=== PATIENT | female | born 1995 | race Hispanic/Latino ===

== ENCOUNTER 2018-10-13 13:24 | Emergency (ER) | payer BC ==
[~2018-10-13] VITALS: Ht 154.9 cm; Wt 63.5 kg
--- OUTSIDE RECORDS SUMMARY | 2018-10-13 13:26 | XMS REPORT ---
Author Author [facility] Address Unknown Phone Unavailable Care Team Providers Care Senior Oracle Database Developer Name Role Phone Unavailable Unavailable Payers Payer Name Policy Type Policy Number Effective Date Expiration Date Problems This patient has no known problems. Allergies, Adverse Reactions, Alerts Allergy Name Allergy Type Status Severity Reaction(s) Onset Date Inactive Date Treating Clinician Comments No Known Allergies DA Active U 2014-05-04 00:00:00 Medications This patient has no known medications. Results Test Description Test Time Test Comments Text Results Atomic Results Result Comments URINALYSIS COMPLETE 2018-09-01 23:47:00 UA COLOR (test code=COLU) Light-Yellow YELLOW UA APPEARANCE (test code=APPU) CLEAR CLEAR UA GLUCOSE DIPSTICK (test code=DGLUU) NEGATIVE mg/dL NEGATIVE UA BILIRUBIN DIPSTICK (test code=BILU) NEGATIVE mg/dL NEGATIVE UA KETONE DIPSTICK (test code=KETU) NEGATIVE mg/dL NEGATIVE UA SPECIFIC GRAVITY (test code=SGU) 1.026 1.001-1.035 UA BLOOD DIPSTICK (test code=JOSE) Negative mg/dL NEGATIVE UA PH DIPSTICK (test code=DARIN) 8.5 5.0-8.0 UA PROTEIN DIPSTICK (test code=PROU) 70 (1+) mg/dL NEGATIVE UA UROBILINIOGEN DIPSTICK (test code=URO) Normal mg/dL NEGATIVE UA NITRITE DIPSTICK (test code=LIN) NEGATIVE NEGATIVE UA LEUKOCYTE ESTERASE W REFLEX (test code=LEUUR) NEGATIVE Darling/uL NEGATIVE UA WBC (test code=WBCU) 0-5 per HPF 0-5 UA RBC (test code=RBCU) 0-2 #/HPF 0-5 UA EPITHELIAL CELLS (test code=EPIU) FEW per HPF FEW UA BACTERIA (test code=BACU) NONE SEEN #/HPF NONE UA MUCUS (test code=MUCU) FEW #/LPF FEW Urine Source? CatheterBASIC METABOLIC [id number] 23:10:00* Test Item Value Reference Range Comments SODIUM (test code=NA) 142 mmol/L 136-145 POTASSIUM (test code=K) 4.0 mmol/L 3.5-5.1 CHLORIDE (test code=CL) 110.0 mmol/L 98-107 CARBON DIOXIDE (test code=CO2) 26.0 mmol/L 21-32 ANION GAP (test code=GAP) 10.0 10-20 GLUCOSE (test code=GLU) 100 mg/dL 74-106 BLOOD UREA NITROGEN (test code=BUN) 9 mg/dL 7-18 GLOMERULAR FILTRATION RATE (test code=GFR) > 60 mL/min >=60 Estimated GFR by using Modified MDRD formula.Chronic kidney disease is defined as either kidney damageor GFR <60 mL/min/1.73 m2 for >3 months. CREATININE (test code=CREAT) 0.90 mg/dL 0.55-1.02 Note change in reference range due to change in reagent. BUN/CREATININE RATIO (test code=BUN/CREA) 10.3 10-20 CALCIUM (test code=CA) 9.2 mg/dL 8.5-10.1 HEPATIC FUNCTION [id number] 23:10:00* Test Item Value Reference Range Comments TOTAL PROTEIN (test code=PROT) 8.3 gram/dL 6.4-8.2 ALBUMIN (test code=ALB) 4.4 g/dL 3.4-5.0 GLOBULIN (test code=GLOB) 3.9 gram/dL 2.7-4.2 ALBUMIN/GLOBULIN RATIO (test code=A/G) 1.1 0.75-1.50 BILIRUBIN TOTAL (test code=BILT) 0.40 mg/dL 0.0-1.0 BILIRUBIN DIRECT (test code=BILD) 0.12 mg/dL 0.0-0.20 SGOT/AST (test code=AST) 15 IUnit/L 15-37 SGPT/ALT (test code=ALT) 22 IUnit/L 12-78 ALKALINE PHOSPHATASE TOTAL (test code=ALKP) 96 IUnit/L 45-117 Note change in reference range due to change in reagent. [id number] 23:10:00* Test Item Value Reference Range Comments LIPASE (test code=LIP) 518 U/L 73.0-393.0 HCG SERUM [id number] 23:10:00* Test Item Value Reference Range Comments HCG SERUM BETA (test code=HCG) < 1.0 mIU/mL 0-3 INTERPRETATION:B-HCG LEVELS <5 SHOULD BE CONSIDERED "NEGATIVE." *WHEN BODERLINE RESULTS ARE ENCOUNTERED,PATIENT SAMPLESSHOULD BE REDRAWN 48 HOURS. 0-1 WEEKS AFTER CONCEPTION 5-50 MIU/ML1-2 WEEKS AFTER CONCEPTION 50-500 MIU/ML2-3 WEEKS AFTER CONCEPTION 100 -5,000 MIU/ML3-4 WEEKS AFTER CONCEPTION 500-10,000 MIU/ML4-5 WEEKS AFTER CONCEPTION 1000 -50,000 MIU/ML5-6 WEEKS AFTER CONCEPTION 10,000-100,000 MIU/ML6-8 WEEKS AFTER CONCEPTION 15,000- 200,000 MIU/ML2-3 MONTHS AFTER CONCEPTION 10,000-100,000 MIU/ML BASIC METABOLIC [id number] 23:01:00* Test Item Value Reference Range Comments SODIUM (test code=NA) 142 mmol/L 136-145 POTASSIUM (test code=K) 4.0 mmol/L 3.5-5.1 CHLORIDE (test code=CL) 110.0 mmol/L 98-107 CARBON DIOXIDE (test code=CO2) mmol/L 21-32 ANION GAP (test code=GAP) 10-20 GLUCOSE (test code=GLU) mg/dL 74-106 BLOOD UREA NITROGEN (test code=BUN) mg/dL 7-18 GLOMERULAR FILTRATION RATE (test code=GFR) mL/min >=60 CREATININE (test code=CREAT) mg/dL 0.55-1.02 BUN/CREATININE RATIO (test code=BUN/CREA) 10-20 CALCIUM (test code=CA) mg/dL 8.5-10.1 HEPATIC FUNCTION [id number] 23:01:00* Test Item Value Reference Range Comments TOTAL PROTEIN (test code=PROT) gram/dL 6.4-8.2 ALBUMIN (test code=ALB) g/dL 3.4-5.0 GLOBULIN (test code=GLOB) gram/dL 2.7-4.2 ALBUMIN/GLOBULIN RATIO (test code=A/G) 0.75-1.50 BILIRUBIN TOTAL (test code=BILT) mg/dL 0.0-1.0 BILIRUBIN DIRECT (test code=BILD) mg/dL 0.0-0.20 SGOT/AST (test code=AST) IUnit/L 15-37 SGPT/ALT (test code=ALT) IUnit/L 12-78 ALKALINE PHOSPHATASE TOTAL (test code=ALKP) IUnit/L 45-117 [id number] 23:01:00* Test Item Value Reference Range Comments LIPASE (test code=LIP) U/L 73.0-393.0 HCG SERUM [id number] 23:01:00* Test Item Value Reference Range Comments HCG SERUM BETA (test code=HCG) mIU/mL 0-3 URINALYSIS [id number] 22:46:00* Test Item Value Reference Range Comments UA COLOR (test code=COLU) YELLOW YELLOW UA APPEARANCE (test code=APPU) Cloudy CLEAR UA GLUCOSE DIPSTICK (test code=DGLUU) NEGATIVE mg/dL NEGATIVE UA BILIRUBIN DIPSTICK (test code=BILU) NEGATIVE mg/dL NEGATIVE UA KETONE DIPSTICK (test code=KETU) NEGATIVE mg/dL NEGATIVE UA SPECIFIC GRAVITY (test code=SGU) 1.032 1.001-1.035 UA BLOOD DIPSTICK (test code=JOSE) Negative mg/dL NEGATIVE UA PH DIPSTICK (test code=DARIN) 8.5 5.0-8.0 UA PROTEIN DIPSTICK (test code=PROU) 200 (2+) mg/dL NEGATIVE UA UROBILINIOGEN DIPSTICK (test code=URO) Normal mg/dL NEGATIVE UA NITRITE DIPSTICK (test code=LIN) NEGATIVE NEGATIVE UA LEUKOCYTE ESTERASE W REFLEX (test code=LEUUR) 25 Darling/uL (Trace) Darling/uL NEGATIVE UA WBC (test code=WBCU) per HPF 0-5 UA RBC (test code=RBCU) per HPF 0-5 UA EPITHELIAL CELLS (test code=EPIU) per HPF Few UA BACTERIA (test code=BACU) per HPF NONE Urine Source? Clean CatchURINALYSIS [id number] 22:46:00* Test Item Value Reference Range Comments UA COLOR (test code=COLU) YELLOW YELLOW UA APPEARANCE (test code=APPU) Cloudy CLEAR UA GLUCOSE DIPSTICK (test code=DGLUU) NEGATIVE mg/dL NEGATIVE UA BILIRUBIN DIPSTICK (test code=BILU) NEGATIVE mg/dL NEGATIVE UA KETONE DIPSTICK (test code=KETU) NEGATIVE mg/dL NEGATIVE UA SPECIFIC GRAVITY (test code=SGU) 1.032 1.001-1.035 UA BLOOD DIPSTICK (test code=JOSE) Negative mg/dL NEGATIVE UA PH DIPSTICK (test code=DARIN) 8.5 5.0-8.0 UA PROTEIN DIPSTICK (test code=PROU) 200 (2+) mg/dL NEGATIVE UA UROBILINIOGEN DIPSTICK (test code=URO) Normal mg/dL NEGATIVE UA NITRITE DIPSTICK (test code=LIN) NEGATIVE NEGATIVE UA LEUKOCYTE ESTERASE W REFLEX (test code=LEUUR) 25 Darling/uL (Trace) Darling/uL NEGATIVE UA WBC (test code=WBCU) 11-20 per HPF 0-5 UA RBC (test code=RBCU) 3-5 #/HPF 0-5 UA EPITHELIAL CELLS (test code=EPIU) MANY per HPF FEW UA BACTERIA (test code=BACU) FEW #/HPF NONE UA HYALINE CAST (test code=HYALU) 3-5 #/LPF 0-5 UA MUCUS (test code=MUCU) MODERATE #/LPF FEW Urine Source? Clean CatchCBC W/O [id number] 22:23:00* Test Item Value Reference Range Comments WHITE BLOOD CELL (test code=WBC) 9.4 K/mm3 4.5-12.5 RED BLOOD CELL (test code=RBC) 4.44 mill/mm3 3.7-5.2 HEMOGLOBIN (test code=HGB) 13.9 gram/dL 11.5-15.5 HEMATOCRIT (test code=HCT) 41.3 % 36.0-46.0 MEAN CELL VOLUME (test code=MCV) 93.0 fL 80-98 MEAN CELL HGB (test code=MCH) 31.3 picogram 27.0-33.0 MEAN CELL HGB CONCETRATION (test code=MCHC) 33.7 gram/dL 33.0-36.0 RED CELL DISTRIBUTION WIDTH (test code=RDW) 12.8 % 11.6-16.2 PLATELET COUNT (test code=PLT) 294 K/mm3 150-450 MEAN PLATELET VOLUME (test code=MPV) 10.8 fL 6.7-11.0 CBC W/O [id number] 22:22:00* Test Item Value Reference Range Comments WHITE BLOOD CELL (test code=WBC) K/mm3 4.5-12.5 RED BLOOD CELL (test code=RBC) mill/mm3 3.7-5.2 HEMOGLOBIN (test code=HGB) 13.9 gram/dL 11.5-15.5 HEMATOCRIT (test code=HCT) 41.3 % 36.0-46.0 MEAN CELL VOLUME (test code=MCV) fL 80-98 MEAN CELL HGB (test code=MCH) picogram 27.0-33.0 MEAN CELL HGB CONCETRATION (test code=MCHC) gram/dL 33.0-36.0 RED CELL DISTRIBUTION WIDTH (test code=RDW) % 11.6-16.2 PLATELET COUNT (test code=PLT) K/mm3 150-450 MEAN PLATELET VOLUME (test code=MPV) fL 6.7-11.0
[2018-10-13] MEDS ORDERED: TRAMADOL HCL 50 MG TAB PO ONE (14:00)
--- NOTE | 2018-10-13 14:19 | Diagnostic Imaging Report ---
ADDENDUM #1 RIGHT KNEE - 3 Image(s) HISTORY: Fall, rule out fracture COMPARISON: None available. FINDINGS: Bones: Subtle flattening of the lateral femoral condyle in the region of the sulcus terminalis. No aggressive osseous lesion. Joints: Probable effusion. Soft tissues: Otherwise, unremarkable. IMPRESSION: Please note, the findings correctly states the subtle impaction deformity is of the anterior aspect of the lateral femoral condyle. This is concerning for an associated anterior cruciate ligament tear (pivot-shift mechanism of injury). Recommend a follow-up nonemergent knee MRI without contrast for further evaluation. Signed by: Dr. Josiah Mcginnis D.O., M.M.M. on 10/13/2018 3:26 PM ORIGINAL REPORT RIGHT KNEE - 3 Image(s) HISTORY: Fall, rule out fracture COMPARISON: None available. FINDINGS: Bones: Subtle flattening of the lateral femoral condyle in the region of the sulcus terminalis. No aggressive osseous lesion. Joints: Probable effusion. Soft tissues: Otherwise, unremarkable. IMPRESSION: Suspected subtle impaction deformity of the anterior aspect of the lateral tibial plateau. This is concerning for an associated anterior cruciate ligament tear. Recommend a follow-up nonemergent knee MRI without contrast for further evaluation. Signed by: Dr. Josiah Mcginnis D.O., M.M.M. on 10/13/2018 2:16 PM
--- NOTE | 2018-10-13 15:27 | Diagnostic Imaging Report ---
CT scan of the RIGHT KNEE, WITHOUT injected contrast. TECHNIQUE: Standard departmental protocols were used. Sagittal and coronal reformatted images were obtained. HISTORY: Pain, fall COMPARISON: Right knee radiographs October 13, 2018. FINDINGS: Bone: Confirmation of the subtle, nondisplaced, impaction at the anterior weightbearing surface of the lateral femoral condyle. No aggressive osseous lesions. Joint: Confirmation of a small nonspecific joint effusion. Soft Tissues: The anterior cruciate ligament appears markedly ill-defined within the limitations of CT. IMPRESSION: Confirmation of the subtle impaction fracture deformity at the anterior weightbearing surface of the lateral femoral condyle and small nonspecific joint effusion. These findings remain concerning for an associated anterior cruciate ligament tear. Recommend a follow-up nonemergent knee MRI without contrast for further evaluation. Signed by: Dr. Josiah Mcginnis D.O., M.M.M. on 10/13/2018 3:23 PM
[2018-10-13] MEDS ORDERED: ONDANSETRON HCL 4 MG ORAL DISINTEGRATING TAB PO ONE (15:30)
[2018-10-13 16:21] VITALS: BP 129/88
[2018-10-24] MEDS ORDERED: ULTRAM50 MG PO (16:08)
[2018-10-28] MEDS ORDERED: inhaler INH (09:01)
== END 2018-10-13 16:22 | disposition home or self-care (01) ==
LOC: ER 13:24
DX: M25.561 Pain in right knee (principal); M25.461 Effusion, right knee; S82.124A Nondisplaced fracture of lateral condyle of right tibia, initial encounter for closed fracture; R26.2 Difficulty in walking, not elsewhere classified; W01.0XXA Fall on same level from slipping, tripping and stumbling without subsequent striking against object, initial encounter; J45.909 Unspecified asthma, uncomplicated
CPT/HCPCS: 29530; 73562; 73700; 99284; Q0162

== ENCOUNTER → 2018-10-28 | Day surgery (SDC) | payer BC ==
[~2018-10-28] MED LIST: ACETAMINOPHEN 1000 MG/100 ML IV ONE; BUPIVACAINE 0.25% 30ML SDV INJ ONE; BUPIVACAINE 0.5%/EPI 30 ML SDV INJ ONE; CEFAZOLIN SOD 1 GM/NS 50ML 100 ML IV ONE; DEXAMETHASONE SOD PHOS INJ 4 MG/ML VIAL ONE; FENTANYL CITRATE/PF 100MCG/2 ML INJ ONE; KETOROLAC TROMETHAMINE 30 MG/ML VIAL ONE; LIDOCAINE 1% W/EPINEPHRINE 20 ML VIAL ONE; LIDOCAINE 2% /EPINEPHRINE 20 ML SDV INJ ONE; LIDOCAINE HCL 2% LOCAL INJ 5 ML SDV VIAL INJ ONE; MEPERIDINE HCL INJ 25 MG/ML VIAL ONE; METOCLOPRAMIDE HCL 10 MG/2ML VIAL ONE; MIDAZOLAM HCL 2 MG/2 ML VIAL ONE; ONDANSETRON HCL INJ 2MG/ML 2ML 2 MG/ML VIAL ONE; PROPOFOL IV EMULSION 10 MG/ML 20 ML VIAL ONE; SEVOFLURANE INHAL SOLN 250 ML PEN BTL ONE; ULTRAM50 MG PO; inhaler INH
[2018-10-28 14:55] VITALS: BP 134/82
--- NOTE | 2018-10-28 21:50 | NUR ---
ORTHOPEDICS OPERATIVE NOTE Date 10/28/18 Pre-Op Dx: Right Knee ACL Tear, Medial Unstable Posterior Horn Meniscus Tear, Post-Op Dx: Right Knee ACL Tear, Medial Unstable Posterior Horn Meniscus Tear, Lateral Posterior Horn Radial Tear Procedure(s): Right Knee ACL Reconstruction with BTB Autograft, Medial Undersurface Unstable Posterior Horn Meniscus Tear, Lateral Posterior Horn Meniscus Tear Anesthesia Type: Surgeon: Urmila Sterling DO Cloth Grader Supervisor: Farzad Antonio Clinical History: 23 year old F with right knee pain and instability Findings: Right Knee ACL Tear, Medial Unstable Posterior Horn Meniscus Tear, Lateral Posterior Horn Radial Tear Complications: None Procedure Summary The patient had an adductor femoral block in the pre-op area. The patient was brought into the operating room and transferred over to the operating room bed. The patient was given general anesthesia and successfully intubated. The patient had all bony prominences well-padded and was positioned in the supin e position with the right side being prepped and draped in standard sterile fashion. The non-operative leg was placed in a well leg rojas with all bony prominences well padded. The patient was given 2 grams of Ancef, and a time out was verified for the extremity and procedure. At that point, local anesthesia was placed in the possible portal sites and graft sites. An incision was made over the patellar tendon with careful dissection through the skin and subcutaneous tissue until the paratenon was visu alized medially and laterally superiorly and inferiorly to the tubercle. A small incision was made through the sheath and the tendon was visualized medially and laterally. The central one centimeter of the tendon was demarcated and was cut distally and proximally. Through the use of a saw, the tibial bone plug was removed and then focus on the patellar bone plug was made. The graft was then prepped so the femoral side fit through a 10 hole and the tibial side through an 10 due to the robust size of the tendon insertion. The graft was then wrapped in an saline and antibiotic soaked gauze. The anterolateral portal was made, and entrance into the patellofemoral compartment was performed. Immediately of note, it was noted that the patient was free of significant chondromalacia, however there was significant synovitis. The lateral and medial gutters were evaluated demonstrating no loose bodies or abnormalities At that point, our attention was turned into the medial compartment. A small low anteromedial incision was made for the portal. The anterior horn, middle horn were normal and posterior horn of the medial meniscus demonstrated an unstable tear. This was debrided, trephinated, and repaired with a ceterix and 2 fast fix. The articular surfaces were noted to be pristine. We focused our attention to the intercondylar notch. The PCL were intact. The ACL was noted to be ruptured. At that point, the lateral compartment was entered and the anterior, and posterior horn of the lateral meniscus was noted to have a deep radial tear to the capsule. This was repaired with a ceterix novostitch. The lateral tibial plateau was noted to have no significant chondromalacia. Using the anteromedial portal, debridement with the arthroscopic shaver, arthroscopic bovie, and kay were used to remove the ACL stump and prepare the notch for the new graft. A notchplasty was performed as well and the posterior aspect of the lateral femoral condyle was well noted. A punch was used to demarcate the center of the femoral socket. This marking was verified from visualization from the medial side to ensure adequate position to avoid back wall blowout and vertical tunnel placement. The pin was placed and secured on the lateral side of the femur. The femur was prepared as well with the reamed with an 10 mm low profile reamer to 25 mm in depth. An ethibond stitch was used as a passing stitch and the pin was extracted leaving the stitch in its place. The bone reamings removed. The tibial tunnel was made with the Arthrex guide set at 55 degrees and reamed to a size 10. After all preparation was performed, the graft was passed and secured on the femoral side with an [employer] 8 x 20 mm Regenesorb Screw. The graft was visualized inside arthroscopy and found not to impinge and had excellent position. The tibial fixation followed with another [employer] 8 x 20 mm Regenesorb Screw. Pictures were taken to demonstrate no intraarticular penetration of the screw within the joint and then within the tibial tunnel demonstrating adequate screw fixation against the graft. A fibrin clot was injected over the meniscal repairs to improve biologic environment. The Daily was performed after total fixation and demonstrated no instability with daily testing. At that point the arthroscopy was terminated and the bone graft from the plugs and tibial tubercle were placed within the patellar site. The tendon was loosely approximated and the sheath was closed with vicryl in a running suture f ashion. The incisions were closed with 2.0 Vicry., 3.0 Monocryl, and steri-strips and xeroform. 4x4 gauze, abd pad were placed with the salo bandage and brace. The patient was placed in leg extension in brace awoken from general anesthesia, successfully extubated, and taken to the recovery room in stable condition. All the needles, lap and sponge counts were correct at the end of the case. Post Op Condition: Stable Post Op Plan: DC home with NWB RLE. Ambulate with crutches.
== END | disposition home or self-care (01) ==
LOC: OR 08:28
PROVIDERS: ATTEND Orthopaedic Surgery
DX: S83.511A Sprain of anterior cruciate ligament of right knee, initial encounter (principal); S83.241A Other tear of medial meniscus, current injury, right knee, initial encounter; S83.281A Other tear of lateral meniscus, current injury, right knee, initial encounter; M65.861 Other synovitis and tenosynovitis, right lower leg; F41.9 Anxiety disorder, unspecified; X58.XXXA Exposure to other specified factors, initial encounter
CPT/HCPCS: 29883; 29888; 29999; 81025; C1713 ×2; C1893; J0131; J0690; J1100; J1885; J2001 ×2; J2175; J2250; J2405; J2704; J2765; J3010